=== PATIENT | male | born 1940 | race Two or more races ===

== ENCOUNTER 2021-03-11 22:30 | Emergency (ER) | payer SELFPAY ==
[~2021-03-11] VITALS: Ht 172.7 cm; Wt 102.3 kg
[2021-03-11 22:31] VITALS: BP 141/72
[2021-03-11] MEDS ORDERED: INSULIN GLARGINE 100 UNITS/ML, PEN SQ-INSULIN ONE (23:00)
--- NOTE | 2021-03-11 23:24 | NUR ---
Patient given discharge instructions and they have confirmed that they understand the instructions. Patient ambulatory with steady gait. NAD, all questions answered appropriately, denies additional needs at this time. No personal belongings left in room after discharge.
== END 2021-03-11 23:26 | disposition home or self-care (01) ==
LOC: ED 23:00
DX: E11.9 Type 2 diabetes mellitus without complications (principal); Z76.0 Encounter for issue of repeat prescription; F17.210 Nicotine dependence, cigarettes, uncomplicated
CPT/HCPCS: 82962; 99281; 99282; 99406